=== PATIENT | female | born 1965 | race Caucasian/White ===

== ENCOUNTER 2021-04-23 05:00 | Day surgery (SDC) | payer OTHER ==
[2021-04-21 15:13] VITALS: BMI 23.3
[2021-04-23 11:37] VITALS: TEMP 96.8
[2021-04-23 12:56] VITALS: BP 154/86; PULSE 65
== END 2021-04-23 13:07 | disposition home or self-care (01) ==
LOC: JASU-ENDO 05:00
PROVIDERS: ATTEND Internal Medicine Gastroenterology
PROC: 0DBH8ZX Excision of Cecum, Via Natural or Artificial Opening Endoscopic, Diagnostic (ICD-10-PCS; 2021-04-23)
PROC: 0DBK8ZX Excision of Ascending Colon, Via Natural or Artificial Opening Endoscopic, Diagnostic (ICD-10-PCS; 2021-04-23)
PROC: 0DBL8ZX Excision of Transverse Colon, Via Natural or Artificial Opening Endoscopic, Diagnostic (ICD-10-PCS; 2021-04-23)
PROC: 0DBP8ZX Excision of Rectum, Via Natural or Artificial Opening Endoscopic, Diagnostic (ICD-10-PCS; 2021-04-23)
PROC: 0DBM8ZX Excision of Descending Colon, Via Natural or Artificial Opening Endoscopic, Diagnostic (ICD-10-PCS; 2021-04-23)
PROC: 0DBK8ZX Excision of Ascending Colon, Via Natural or Artificial Opening Endoscopic, Diagnostic (ICD-10-PCS; principal; 2021-04-23 11:00)
DX: Z12.11 Encounter for screening for malignant neoplasm of colon (principal); D12.8 Benign neoplasm of rectum; D12.4 Benign neoplasm of descending colon; D12.0 Benign neoplasm of cecum; D12.2 Benign neoplasm of ascending colon; D12.3 Benign neoplasm of transverse colon
CPT/HCPCS: 88305-TC

== ENCOUNTER 2023-11-21 04:10 | Day surgery (SDC) | payer OTHER ==
[2023-11-15 14:34] VITALS: BMI 23.0
[2023-11-21] MEDS ORDERED: ONDANSETRON 4 MG/2 ML VIAL IVPUSH PRN (09:16)
[2023-11-21] MEDS ORDERED: PROPOFOL 20 ML ONE (10:06)
[2023-11-21] MEDS ORDERED: MIDAZOLAM HCL 2 MG/2 ML SINGLE DOSE VIAL ONE (10:06)
[2023-11-21] MEDS ORDERED: ONDANSETRON 4 MG/2 ML VIAL ONE (10:07)
[2023-11-21] MEDS ORDERED: LIDOCAINE HCL/PF 2% SDV 5ML VIAL ONE (10:07)
[2023-11-21] MEDS ORDERED: DEXAMETHASONE SOD PHOSPHATE 4 MG/1 ML VIAL ONE (10:07)
[2023-11-21] MEDS ORDERED: KETOROLAC TROMETHAMINE 30 MG/1 ML VIAL ONE (10:44)
[2023-11-21] MEDS ORDERED: IBUPROFEN 600 MG TABLET (FP) PO PRN (11:28)
[2023-11-21] MEDS ORDERED: oxyCODONE HCL 5 MG TABLET PO PRN (11:28)
[2023-11-21] MEDS ORDERED: IBUPROFEN 800 MG/8 ML IJ IVPB PRN (11:28)
[2023-11-21] MEDS ORDERED: ELECTROLYTE-148 SOLN 1,000 ML IV SCH (11:30)
[2023-11-21] MEDS: LACTATED RINGERS SOLUTION 1,000 ML IV SCH (11:37)
[2023-11-21 13:02] VITALS: RESP 20; TEMP 97.8
[2023-11-21] MEDS: ONDANSETRON 4 MG/2 ML VIAL IVPUSH PRN (14:10)
[2023-11-21] MEDS ORDERED: ONDANSETRON *ODT* 4 MG TABLET ONE (14:15)
[2023-11-21 15:42] VITALS: BP 125/71; PULSE 70
== END 2023-11-21 14:22 | disposition home or self-care (01) ==
LOC: JASUSAT 04:10
PROVIDERS: ATTEND Obstetrics & Gynecology
PROC: 0UB98ZZ Excision of Uterus, Via Natural or Artificial Opening Endoscopic (ICD-10-PCS; principal; 2023-11-21 10:00)
DX: N95.0 Postmenopausal bleeding (principal); D25.0 Submucous leiomyoma of uterus; N84.0 Polyp of corpus uteri
CPT/HCPCS: 94760; Q0162